=== PATIENT | female | born 1985 | race Asian ===

== ENCOUNTER 2018-04-25 21:50 | Inpatient (IN) | payer SELFPAY ==
[~2018-04-25] VITALS: Ht 160 cm; Wt 78.9 kg
[2018-04-25] MEDS ORDERED: NALBUPHINE 10 MG/ML AMP IVP PRN (23:00)
[2018-04-25 23:24] LABS: BASOPHILS % (AUTO) 0.3 % (0.0-2.0); EOSINOPHILS # (AUTO) 0.1 K/uL (0-0.4); EOSINOPHILS % (AUTO) 1.3 % (0.0-4.0); HEMATOCRIT 39.7 % (36-48); HEMOGLOBIN 13.3 g/dL (12.0-16.0); LYMPHOCYTES # (AUTO) 1.9 K/uL (2.5-16.5); LYMPHOCYTES % (AUTO) 19.4 % (20.5-51.1); MEAN CORPUSCULAR HEMOGLOBIN 31 pg (27-31); MEAN CORPUSCULAR HGB CONC 34 g/dL (33-37); MEAN CORPUSCULAR VOLUME 90.7 fL (80-94); MONOCYTES # (AUTO) 0.5 K/uL (0.8-1.0); MONOCYTES % (AUTO) 5.3 % (1.7-9.3); NEUTROPHILS # (AUTO) 7.2 K/uL (1.8-7.7); NEUTROPHILS % (AUTO) 73.7 % (42.2-75.2); PLATELET COUNT (AUTO) 157 K/uL (140-450); RED BLOOD CELL COUNT(AUTO) 4.37 MIL/uL (4.20-5.40); WHITE BLOOD COUNT (AUTO) 9.8 K/uL (4.8-10.8)
[2018-04-25 23:35] LABS: APPEARANCE,URINE CLEAR (CLEAR); BILIRUBIN,URINE NEGATIVE (NEGATIVE); BLOOD, URINE 1+ (NEGATIVE); COLOR,URINE YELLOW (YELLOW); LEUKOCYTE ESTERASE ,URINE NEGATIVE (NEGATIVE); NITRITE, URINE NEGATIVE (NEGATIVE); UGLUCOSE NEGATIVE (NEGATIVE)
[2018-04-25] MEDS: LACTATED RINGERS 1,000 ML IV SCH (23:47)
[2018-04-25 23:51] VITALS: BP 128/57
[2018-04-25] MEDS ORDERED: ROPIVACAINE 0.2%/NS PREMIX 250 ML EPI ONE (23:55)
[2018-04-25 23:56] LABS: RBC,URINE 3-10 (FEW) /HPF (0-5); WBC,URINE 0-5 (RARE) /HPF (0-5)
[2018-04-26] MEDS: LACTATED RINGERS 1,000 ML IV SCH ×2 (00:20→02:55)
[2018-04-26] MEDS ORDERED: OXYTOCIN 10 UNITS/ML VIAL IM ONE (01:50)
[2018-04-26] MEDS ORDERED: OXYTOCIN 20 UNITS/LR PREMIX 1,000 ML IV SCH ×2 (01:50→04:26)
[2018-04-26] MEDS ORDERED: LIDOCAINE 2% 1000 MG/50 ML VIAL INJ ONE ×2 (02:10→02:16)
[2018-04-26] MEDS ORDERED: OXYTOCIN 10 UNITS/ML VIAL ONE (02:57)
[2018-04-26] MEDS ORDERED: OXYTOCIN 20 UNITS/LR PREMIX 1,000 ML IV ONE (02:57)
[2018-04-26] MEDS ORDERED: IBUPROFEN 600 MG TAB PO PRN (04:30)
[2018-04-26] MEDS ORDERED: MEASLES, MUMPS, AND RUBELLA 1 VIAL SQVAC PRN (04:30)
[2018-04-26] MEDS ORDERED: ACETAMINOPHEN 325 MG TAB PO PRN (04:30)
--- NOTE | 2018-04-26 08:27 | NUR ---
PATIENT HAS BEEN SCREENED AND CATEGORIZED LOW NUTRITION RISK. PATIENT WILL BE SEEN WITHIN 7 DAYS OF ADMISSION. 05/02/[address]
[2018-04-27 06:49] LABS: BASOPHILS % (AUTO) 0.5 % (0.0-2.0); EOSINOPHILS # (AUTO) 0.1 K/uL (0-0.4); HEMATOCRIT 39.8 % (36-48); LYMPHOCYTES % (AUTO) 27.1 % (20.5-51.1); MEAN CORPUSCULAR HEMOGLOBIN 30 pg (27-31); MEAN CORPUSCULAR HGB CONC 33 g/dL (33-37); MONOCYTES # (AUTO) 0.5 K/uL (0.8-1.0); MONOCYTES % (AUTO) 6.3 % (1.7-9.3); NEUTROPHILS # (AUTO) 4.8 K/uL (1.8-7.7); NEUTROPHILS % (AUTO) 64.1 % (42.2-75.2); PLATELET COUNT (AUTO) 116 K/uL (140-450); RED BLOOD CELL COUNT(AUTO) 4.32 MIL/uL (4.20-5.40); RED CELL DISTRIBUTION WIDTH 15.5 % (11.6-13.7); WHITE BLOOD COUNT (AUTO) 7.4 K/uL (4.8-10.8)
[2018-04-30 07:28] LABS: RAPID PLASMA REAGIN NON-REACTIVE (Non Reactiv)
== END 2018-04-27 22:15 | disposition home or self-care (01) | DRG 775 ==
LOC: MLD 21:50 → OBSVTOIN 21:50 → MFCC 04-26 11:05
PROVIDERS: ADMIT Obstetrics & Gynecology; ATTEND Obstetrics & Gynecology
PROC: 10E0XZZ Delivery of Products of Conception, External Approach (ICD-10-PCS; principal; 2018-04-26)
PROC: 10907ZC Drainage of Amniotic Fluid, Therapeutic from Products of Conception, Via Natural or Artificial Opening (ICD-10-PCS; 2018-04-26)
PROC: 00HU33Z Insertion of Infusion Device into Spinal Canal, Percutaneous Approach (ICD-10-PCS; 2018-04-26)
PROC: 3E0R3BZ Introduction of Anesthetic Agent into Spinal Canal, Percutaneous Approach (ICD-10-PCS; 2018-04-26)
DX: O80 Encounter for full-term uncomplicated delivery (principal); Z37.0 Single live birth; Z3A.38 38 weeks gestation of pregnancy; Z28.21 Immunization not carried out because of patient refusal
CPT/HCPCS: 36415; 51702; 59409; 81001; 85025; 86592; 86886; 86900; 86901; 87086; J2001; J2590; J2795; J7120